=== PATIENT | female | born 2000 | race Two or more races ===

== ENCOUNTER 2025-05-28 18:28 | Emergency (ER) | payer OTHER ==
[~2025-05-28] VITALS: Ht 157.5 cm; Wt 52.2 kg
[2025-05-28] MEDS ORDERED: ALDACTONE25 MG PO (20:57)
[2025-05-28] MEDS ORDERED: DEXAMETHASONE SODIUM PHOSPHATE 4 MG/ML VIAL IM STA (23:29)
[2025-05-28] MEDS ORDERED: KETOROLAC TROMETHAMINE 30 MG VIAL IM STA (23:29)
[2025-05-28] MEDS ORDERED: ORPHENADRINE CITRATE 30 MG/ML AMPUL IM STA (23:30)
[2025-05-28] MEDS ORDERED: KETOROLAC TROMETHAMINE 30 MG VIAL ONE (23:33)
[2025-05-28] MEDS ORDERED: MEDROLPACK PO (23:34)
[2025-05-28] MEDS ORDERED: ORPHENADRINE CITRATE 30 MG/ML AMPUL ONE (23:34)
[2025-05-28] MEDS ORDERED: NORFLEX100MG PO (23:34)
[2025-05-28] MEDS ORDERED: DEXAMETHASONE SODIUM PHOSPHATE 4 MG/ML VIAL ONE (23:34)
[2025-05-29] MEDS ORDERED: DIPHENHYDRAMINE HCL 50 MG/ML VIAL 1ML IV STA (00:06)
[2025-05-29] MEDS ORDERED: 0.9 % SODIUM CHLORIDE 1,000 ML IV STA (00:06)
[2025-05-29] MEDS ORDERED: DIPHENHYDRAMINE HCL 50 MG/ML VIAL 1ML ONE (00:13)
== END 2025-05-29 02:48 | disposition home or self-care (01) ==
LOC: ER 18:29
DX: S09.8XXA Other specified injuries of head, initial encounter (principal); W18.39XA Other fall on same level, initial encounter; Y93.89 Activity, other specified; Y92.89 Other specified places as the place of occurrence of the external cause; R51.9 Headache, unspecified; M54.2 Cervicalgia